=== PATIENT | female | born 1940 | race Caucasian/White ===

== ENCOUNTER → 2016-06-29 | Day surgery (SDC) | payer MEDICARE ==
[~2016-06-29] MED LIST: DYAZ PO; FOLI1 PO; KETOROLAC TROMETHAMINE 30 MG/ML (IVP) VIAL IV PUSH ONE; LACTATED RINGER'S 1000 ML INJ 1,000 ML ONE; METH2.5 PO; MIDAZOLAM HCL 2 MG/2 ML VIAL ONE; MULTCAP PO; OMEP20TA PO; PARO20 PO; POTA-267 PO; PROPOFOL 100 MG/10 ML INJ IV ONE; REST0.05 OU
--- NOTE | 2016-06-29 14:54 | TN ---
cc: HERON MURRAY M.D., [place] DATE OF SURGERY: 06/29/2016 PREOPERATIVE DIAGNOSIS Left painful total knee arthroplasty, periprosthetic loosening, knee stiffness. POSTOPERATIVE DIAGNOSIS Left painful total knee arthroplasty, periprosthetic loosening, knee stiffness. PROCEDURE Left knee manipulation, fluoroscopic guidance of needle, left knee aspiration under anesthesia. SURGEON Dash Murray MD HUM[employer] VICE PRESIDENT Staff. SPECIMEN Left knee synovial fluid sent for aerobic and anaerobic cultures and sensitivities, fungal smear and culture. ESTIMATED BLOOD LOSS None. COMPLICATIONS None. ANESTHESIA General. DRAINS None. CONDITION Stable. PLAN OF ACTIVITY Per orders. DETAILS OF PROCEDURE The patient was brought into the operating room, had satisfactory anesthesia by the Department of Anesthesia. The left knee and lower extremity was prepped and draped in the usual sterile manner. An 18-gauge spinal needle was introduced into the left knee joint. It was aspirated of 10 cc of clear synovial fluid. This was sent to microbiology for aerobic and anaerobic cultures and sensitivities with fungal smear and culture. The knee was then manipulated under anesthesia. The patient had 125 degrees of flexion. The patient tolerated the procedure well and arrived in the recovery room in stable and satisfactory condition. 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 MD YAMILKA Brewster/ERROL /2:21 PM /2:50 PM
== END | disposition home or self-care (01) ==
LOC: ESDC 12:30
PROVIDERS: ATTEND Orthopaedic Surgery Orthopaedic Surgery of the Spine
DX: M24.662 Ankylosis, left knee (principal); M25.662 Stiffness of left knee, not elsewhere classified; Z96.652 Presence of left artificial knee joint; T84.84XA Pain due to internal orthopedic prosthetic devices, implants and grafts, initial encounter
CPT/HCPCS: 01380; 27570; 73560; 76000; 87070; 87102; 87205; 87206; J1885; J2250; J3010; J7120